=== PATIENT | male | born 1965 | race Caucasian/White ===

== ENCOUNTER 2017-07-26 19:52 | Inpatient (IN) | payer OTHER ==
[2017-07-26 20:38] LABS: ABSOLUTE LYMPHOCYTES (AUTO) 1.6 10^3/uL (0.5-4.7); ABSOLUTE MONOCYTES (AUTO) 0.3 10^3/uL (0.1-1.4); ABSOLUTE NEUT (AUTO) 1.4 10^3/uL (1.7-8.2); BASOPHILS % (AUTO) 1.4 % (0-2); EOSINOPHILS % (AUTO) 0.9 % (0-6); HEMATOCRIT 45.4 % (37.9-51.0); HEMOGLOBIN 15.8 g/dL (13.5-17.0); MEAN CORPUSCULAR HEMOGLOBIN 36.4 pg (27.0-33.4); MEAN CORPUSCULAR HGB CONC 34.7 g/dL (32.0-36.0); MEAN CORPUSCULAR VOLUME 105 fl (80-97); MONOCYTES % (AUTO) 7.8 % (3-13); RED BLOOD COUNT 4.33 10^6/uL (4.35-5.55); RED CELL DISTRIBUTION WIDTH 15.1 % (11.5-14.0); SEGMENTED NEUTROPHILS % (AUTO) 40.9 % (42-78); WHITE BLOOD COUNT 3.3 10^3/uL (4.0-10.5)
[2017-07-26] MEDS ORDERED: GABAPENTIN 300 MG CAPSULE PO ONE (21:02)
--- NOTE | 2017-07-26 21:02 | ER Document Report ---
ED General - General Chief Complaint: Suicidal Ideation Stated Complaint: PSYCH EVAL Time Seen by Provider: 07/26/17 20:31 Cannot obtain history due to: Intoxicated Notes: Patient is a 51-year-old male who presents by EMS with "not feeling right". Does admit to heavy drinking tonight. Apparently his significant other contacted EMS as patient threatened to hang himself stating that he did not know how to cope with the loss of his mother. The patient himself is quite guarded with his history, stating only that he feels fine. He does however repeatedly come back to stating "I have just never seen somebody like that before, I do not know how to handle the situation". He denies stating that he was going to harm himself but apparently both EMS and his significant other did hear him commenting that he planned harm himself. He does note that he has bilateral lower extremity pain that has been chronic and unchanged her last several months. He has no prior psychiatric hospitalizations. He denies any prior attempts to harm himself. Nothing improves or worsens his symptoms. TRAVEL OUTSIDE OF THE [place] IN LAST 30 DAYS: No - Related Data Allergies/Adverse Reactions: acetaminophen [From Darvocet-N] Allergy (Verified 07/26/17 19:59) propoxyphene [From Darvocet-N] Allergy (Verified 07/26/17 19:59) Past Medical History - General Information source: Patient - Social History Smoking Status: Current Every Day Smoker Frequency of alcohol use: Heavy Drug Abuse: None Lives with: Spouse/Significant other Family History: Reviewed & Not Pertinent Review of Systems - Review of Systems Notes: Constitutional: Negative for fever. HENT: Negative for sore throat. Eyes: Negative for visual changes. Cardiovascular: Negative for chest pain. Respiratory: Negative for shortness of breath. Gastrointestinal: Negative for abdominal pain, vomiting or diarrhea. Genitourinary: Negative for dysuria. Musculoskeletal: Negative for back pain. Skin: Negative for rash. Neurological: Negative for headaches, weakness or numbness. 10 point ROS negative except as marked above and in HPI. Physical Exam - Vital signs Vitals: Temp Pulse Resp BP Pulse Ox 98.4 F 89 20 145/108 H 95 07/26/17 20:06 07/26/17 20:06 07/26/17 20:06 07/26/17 20:06 07/26/17 20:06 Interpretation: Normal Notes: PHYSICAL EXAMINATION: GENERAL: Well-appearing, well-nourished and in no acute distress. HEAD: Atraumatic, normocephalic. EYES: Pupils equal round and reactive to light, extraocular movements intact, sclera anicteric, conjunctiva are normal. ENT: nares patent, oropharynx clear without exudates. Moist mucous membranes. NECK: Normal range of motion, supple without lymphadenopathy LUNGS: Breath sounds clear to auscultation bilaterally and equal. No wheezes rales or rhonchi. HEART: Regular rate and rhythm without murmurs ABDOMEN: Soft, nontender, normoactive bowel sounds. No guarding, no rebound. No masses appreciated. EXTREMITIES: Normal range of motion, no pitting or edema. No cyanosis. NEUROLOGICAL: No focal neurological deficits. Moves all extremities spontaneously and on command. PSYCH: Somewhat intoxicated but calm and cooperative SKIN: Warm, Dry, normal turgor, no rashes or lesions noted. Course - Re-evaluation Re-evalutation: 07/26/17 21:00 Patient presents without any specific complaints although apparently his fianc e with whom he lives called EMS as he apparently threatened to hang himself. Patient arrives intoxicated, is guarded in his history but does repeatedly state that "I just feel so helpless, I have never seen my mom like that before" . He denies any acute suicidal ideation at this time but is unable to explain to me why significant other was so worried about his comments earlier today that she called 911. Unfortunately we have no way to get a hold of the significant others he does not know her number and no contact information was provided by EMS. Patient has never been to the emergency department for for similar reason. Given that he is intoxicated, does not appear to be fully forthcoming with tonight's events, I would like to keep him here in the emergency room to evaluate by psychiatry in the morning and he has agreed. 07/27/17 01:42 Laboratories are only notable for market alcohol elevation at 371. LFTs are also elevated in a pattern consistent with chronic alcohol abuse. Patient is medically cleared for psychiatric clearance in the morning - Vital Signs Vital signs: Temp Pulse Resp BP Pulse Ox 98.4 F 89 20 145/108 H 95 07/26/17 20:06 07/26/17 20:06 07/26/17 20:06 07/26/17 20:06 07/26/17 20:06 - Laboratory Result Diagrams: 07/26/17 20:20 07/26/17 20:20 Laboratory results interpreted by me: 07/26/17 07/26/17 07/26/17 20:20 20:20 21:00 WBC 3.3 L RBC 4.33 L MCV 105 H MCH 36.4 H RDW 15.1 H Seg Neutrophils % 40.9 L Lymphocytes % 49.0 H Absolute Neutrophils 1.4 L Sodium 148.4 H Potassium 3.3 L Direct Bilirubin 0.6 H AST 235 H ALT 130 H Alkaline Phosphatase 134 H Urine Blood SMALL H Salicylates < 1.0 L Acetaminophen < 10 L Serum Alcohol 371 H* Discharge - Discharge Clinical Impression: Suicidal ideation Alcohol intoxication Qualifiers: Complication of substance-induced condition: uncomplicated Qualified Code(s): F10.920 - Alcohol use, unspecified with intoxication, uncomplicated Condition: Fair Disposition: PSYCH HOSP/UNIT
[2017-07-26 21:08] LABS: ALANINE AMINOTRANSFERASE 130 U/L (21-72); ALBUMIN 4.1 g/dL (3.5-5.0); ALKALINE PHOSPHATASE 134 U/L (38-126); ANION GAP 16 (5-19); ASPARTATE AMINO TRANSFERASE 235 U/L (17-59); BILIRUBIN,DIRECT 0.6 mg/dL (0.0-0.4); BILIRUBIN,TOTAL 0.7 mg/dL (0.2-1.3); BLOOD UREA NITROGEN 11 mg/dL (7-20); CALCIUM 8.9 mg/dL (8.4-10.2); CARBON DIOXIDE 27 mmol/L (22-30); CHLORIDE 105 mmol/L (98-107); CREATININE RESULT 0.69 mg/dL (0.52-1.25); GLUCOSE 78 mg/dL (75-110); POTASSIUM 3.3 mmol/L (3.6-5.0); SODIUM 148.4 mmol/L (137-145); TOTAL PROTEIN 6.7 g/dL (6.3-8.2)
[2017-07-26 21:33] LABS: ALCOHOL 371 mg/dL (NONE DETECTED)
[2017-07-26 21:35] LABS: APPEARANCE,URINE CLEAR; BILIRUBIN,URINE NEGATIVE (NEGATIVE); GLUCOSE, URINE NEGATIVE (NEGATIVE); KETONES,URINE NEGATIVE (NEGATIVE); LEUKOCYTE ESTERASE,URINE NEGATIVE (NEGATIVE); NITRITE,URINE NEGATIVE (NEGATIVE); PROTEIN,URINE NEGATIVE (NEGATIVE); URINE SPECIFIC GRAVITY 1.003; UROBILINOGEN,URINE NEGATIVE mg/dL (<2.0)
[2017-07-26 21:54] LABS: URINE BARBITURATES SCREEN NEGATIVE; URINE METHADONE SCREEN NEGATIVE; URINE OPIATES LOW NEGATIVE; URINE PHENCYCLIDINE SCREEN NEGATIVE
--- NOTE | 2017-07-26 23:18 | EKG REPORT ---
SEVERITY:- ABNORMAL ECG - SINUS RHYTHM OLD ANTEROSEPTAL AL : Confirmed by: Zurdo Benitez MD 26-Jul-2017 23:16:53
[2017-07-26] MEDS ORDERED: TRAZODONE HCL 50 MG TABLET PO ONE (23:25)
[2017-07-27] MEDS ORDERED: POTASSIUM CHLORIDE 10 MEQ TABLET.SA PO ONE ×2 (09:24→21:20)
[2017-07-27] MEDS ORDERED: LORAZEPAM 1 MG TABLET PO ONE ×3 (09:25→18:45)
[2017-07-27] MEDS ORDERED: LISINOPRIL 10 MG TABLET PO ONE (09:27)
[2017-07-27] MEDS ORDERED: RISPERIDONE 0.25 MG TABLET PO ONE (11:32)
--- NOTE | 2017-07-27 15:34 | PSYCHOLOGICAL NOTE ---
Psych Note - Psych Note Psych Note: Patient presented to [facility] ED via EMS. He states he has a plan to hang himself; no history of suicidal ideation. Patient relayed his mom is dying and he is having a hard time dealing with situation. Patient is currently intoxicated, his drink of choice is vodka. Chart review conducted: Patient has no history of prior psychological evaluations conducted by this behavioral health team. Patient is currently under the influence with a blood alcohol level of 371. Attending nurse noted the patient denies HI and SI but says he feels helpless because his mother is very sick; patient says she "just don't know what to do; the initial 911 call reported patent being SI; patient denies saying anything of the kind; patient says his "franky Sagastume said that"; patient agrees to allow us to contact Tanika but he doesn't know her number and no cell phone; says all numbers are programmed into the cell phones so he doesn't know her number by heart. Attending physician noted The patient himself is quite guarded with his history, stating only that he feels fine. He does however repeatedly come back to stating "I have just never seen somebody like that before, I do not know how to handle the situation". He denies stating that he was going to harm himself but apparently both EMS and his significant other did hear him commenting that he planned harm himself. Evaluation: Patient disclosed that he was brought to [facility] via EMS. He states that "they brought me in because she said I was going to kill myself." Patient denies that he made this comment. He continued to state that he is just been really upset because his mom has been very sick in the hospital for a couple weeks now. Patient states "I have never seen anything like it." Patient confirms he drinks every day "a pint or so." Patient denies that he wants to harm himself or others. Patient states that he just is very upset that his mom is so sick. 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 Patient is alert and orientated to person, place, time and circumstance. Mood is dysphoric with restricted affect. Patient denies suicidal and homicidal ideation. Patient denies auditory visual hallucinations. Patient is noted to have psychomotor agitation. Patient is unable to sit still shaking his legs jumping out of the bed checking the doors and hol[place]. When clinician pointed out to patient that he was shaking patient denies this and holds his hand up to look at it. As patient is watching his hand shake he again says that he was not shaking. Delusions are absent and behaviors congruent with intact reality based presentation i.e. organized, linear, rational thinking. Attention and concentration is fair. Eye contact was fair. Conversational speech was within normal rate tone and prosody. Insight, judgment, impulse control is fair due to substance abuse (alcohol abuse). 303.90 (F10.20) alcohol Abuse; severe 309.89 (F43.8) unspecified stressor related disorder; mother very sick in hospital Impression/Plan: Patient is considered psychiatrically clear. Patient does not meet IVC criteria per [place] GS 122C. Patient denies suicidal and homicidal ideation. Delusions are absent and behaviors congruent with intact reality based presentation i.e. organized, linear, rational thinking. Patient is demonstrating stress related to his mother's illness. Patient is very fixated on the shock of watching her being so sick. Patient came in with a blood alcohol level of 371 and during patient's evaluation began to shake. Patient reports he drinks approximately a pint daily. Patient is now being monitored for alcohol withdrawal. Dr. Cordero was consulted and the care and management of this patient; attending physician is in agreement with recommendations and disposition.
[2017-07-27] MEDS ORDERED: LORAZEPAM 1 MG TABLET PO PRN ×3 (17:28→21:20)
--- NOTE | 2017-07-27 17:30 | ER Document Report ---
Doctor's Note Notes: 07/27/17 17:29 Patient is being seen here for suicidal ideation as well as alcohol intoxication. He has been mildly hypertensive and tachycardic throughout his hospital stay today. I have treated it with his lisinopril as well as some Ativan. Patient has remained stable throughout the day. He also had hypokalemia which I treated with potassium. The patient is ordered Ativan 1 mg p.o. every 2 hours as needed withdrawal symptoms. 07/27/17 17:47 I did going to reassess the patient. He is alert and oriented sitting up on the edge of the seat. He is making good eye contact. I did ask me about suicidal or homicidal ideation. He denies both. He states "I guess I have a lot to live for". I did ask him when he was discharged home if he is going to continue drinking alcohol and he states "I need to get a job so now". Told him he have to get into a detox program as trying to stop alcohol on your own after a lengthy process can be detrimental to his health. Patient verbalized understanding. He is willing to call and get himself into a program if I give him the numbers. If I can normalizes heart rate and blood pressure I will discharge him home with Librium. Did tell him if he was to start drinking again that he was not to take the Librium with alcohol. Patient verbalized understanding. 07/27/17 18:46 Pt.'s heart rate had decreased to low 90s. Blood pressure is improved, although still slightly elevated. Pt. states his blood pressure is usually high and he is on lisinopril to treat this. Pt. will get one more dose of po ativan and be discharged on librium. 07/27/17 19:00 07/27/17 19:13 I did tell the patient he needs to get his Librium prescription filled today. [email or web address]
[2017-07-27] MEDS ORDERED: FOLIC ACID 1 MG TABLET PO ONE (21:21)
--- NOTE | 2017-07-27 21:24 | ER Document Report ---
Doctor's Note Notes: 07/27/17 21:23 I assumed care of patient this evening. The patient has a history of alcohol abuse and presented with suicidal ideations in the setting of alcohol intoxication. He was observed and evaluated by psychiatry today. The plan involves discharge home with outpatient detox. Given the current time, the plan will be discharge tomorrow morning. We will continue to observe for alcohol withdrawal. He has required Ativan. 07/28/17 02:55
[2017-07-28] MEDS ORDERED: LORAZEPAM 1 MG TABLET PO ONE (01:40)
--- NOTE | 2017-07-28 02:47 | EKG REPORT ---
SEVERITY:- NORMAL ECG - SINUS RHYTHM : Confirmed by: Zurdo Benitez MD 27-Jul-2017 19:51:12
[2017-07-28] MEDS ORDERED: LORAZEPAM INJ 2 MG/1 ML VIAL IV ONE (03:58)
[2017-07-28] MEDS ORDERED: ONDANSETRON HCL INJ/PF 4 MG/2 ML SDV IV PRN (04:19)
[2017-07-28] MEDS ORDERED: ACETAMINOPHEN 325 MG TABLET PO PRN (04:19)
[2017-07-28] MEDS ORDERED: LEVALBUTEROL HCL NEB 1.25 MG/3 ML AMPUL NEB PRN (04:19)
[2017-07-28] MEDS ORDERED: LORAZEPAM INJ 2 MG/1 ML VIAL IV PRN (04:23)
[2017-07-28] MEDS: NORMAL SALINE 1000 ML 1,000 ML IV PRN ×3 (04:33→15:44)
[2017-07-28] MEDS ORDERED: NICOTINE 21 MG/24 HR PATCH.TD24 TD PRN (05:01)
--- NOTE | 2017-07-28 05:01 | PDOC H&P ---
History of Present Illness Admission Date/PCP: 07/28/17 04:12 No PCP History of Present Illness: MARCOS MIRAMONTES is a 51 year old male with a PMH of HTN who presents to [facility] on 07/26/17 for SI. Patient was initially found to be intoxicated and was IVC. Patient was subsequently evaluated by psychology and felt to not be a danger to himself or others. Patient reports drinking a pint or more daily. Although pending discharge, patient became increasingly agitated and tachycardic as well as hypertensive. Patient is felt to be having acute alcohol withdrawal and is referred to the hospital service. Patient has recently received Ativan and is quite sleepy although arousable and appropriate when aroused; and asks me for something to eat. This does make history quite difficult. Past Medical History Cardiac Medical History: Reports: Hypertension Pulmonary Medical History: Reports: Chronic Obstructive Pulmonary Disease (COPD) Past Surgical History Past Surgical History: Reports: Orthopedic Surgery - Carpal tunnel Social History Lives with: Spouse/Significant other Smoking Status: Current Every Day Smoker Cigarettes Packs Per Day: 1 Frequency of Alcohol Use: Heavy Hx Recreational Drug Use: No Hx Prescription Drug Abuse: No - Advance Directive Resuscitation Status: Full Code Surrogate healthcare decision maker:: Is unable to provide a emergency contact Family History Family History: COPD Parental Family History Reviewed: Yes Children Family History Reviewed: Unknown Sibling(s) Family History Reviewed.: Unknown Medication/Allergy Home Medications: Chlordiazepoxide HCl [Librium 25 mg Capsule] 1 - 2 cap PO QID #120 capsule MDD 300 mg 07/27/17 Lisinopril [Prinivil 30 mg Tablet] 30 mg PO DAILY 07/27/17 Allergies/Adverse Reactions: acetaminophen [From Darvocet-N] Allergy (Verified 07/26/17 19:59) propoxyphene [From Darvocet-N] Allergy (Verified 07/26/17 19:59) Review of Systems ROS unobtainable: Due to mental status Physical Exam Vital Signs: Temp Pulse Resp BP Pulse Ox 97.9 F 88 14 144/115 H 88 L 07/27/17 20:29 07/27/17 18:30 07/28/17 02:17 07/28/17 02:25 07/28/17 02:24 General appearance: PRESENT: disheveled, thin. ABSENT: well-nourished Head exam: PRESENT: atraumatic, normocephalic Eye exam: PRESENT: conjunctiva pink, EOMI, PERRLA. ABSENT: conjunctival injection, scleral icterus Ear exam: PRESENT: normal external ear exam Mouth exam: PRESENT: dry mucosa, tongue midline Neck exam: ABSENT: JVD, lymphadenopathy, thyromegaly, tracheal deviation Respiratory exam: PRESENT: symmetrical, unlabored, wheezes. ABSENT: accessory muscle use, rales, retraction, rhonchi, tachypnea Cardiovascular exam: PRESENT: RRR, +S1, +S2. ABSENT: diastolic murmur, rubs, systolic murmur Pulses: PRESENT: normal dorsalis pedis pul Vascular exam: PRESENT: normal capillary refill GI/Abdominal exam: PRESENT: normal bowel sounds, soft. ABSENT: distended, guarding, mass, organolmegaly, rebound, tenderness Rectal exam: PRESENT: deferred Extremities exam: PRESENT: clubbing. ABSENT: calf tenderness, pedal edema Musculoskeletal exam: PRESENT: deformity - Right elbow bruise, reports radial head injury Neurological exam: PRESENT: altered, oriented to person, CN II-XII grossly intact Psychiatric exam: PRESENT: depressed, flat affect. ABSENT: homicidal ideation, suicidal ideation Skin exam: PRESENT: dry, intact, warm, other - Nail pitting. ABSENT: cyanosis, rash Results Laboratory Results: 07/26/17 07/26/17 20:20 20:20 WBC 3.3 L Hgb 15.8 MCV 105 H Plt Count 313 Sodium 148.4 H Potassium 3.3 L Creatinine 0.69 AST 235 H ALT 130 H Alkaline Phosphatase 134 H Serum Alcohol 371 H* Assessment & Plan - Diagnosis (1) Alcohol withdrawal delirium, acute, mixed level of activity Is this a current diagnosis for this admission?: Yes Plan: Monitor patient on telemetry for arrhythmia. Check magnesium. Scheduled po Valium. PRN IV Ativan for withdrawal symptoms. Place on thiamine, folic acid. Monitor for worsening symptomatology (2) Hypertension Qualifiers: Hypertension type: essential hypertension Qualified Code(s): I10 - Essential (primary) hypertension Is this a current diagnosis for this admission?: Yes Plan: Lisinopril 20 mg p.o. every 12 (3) COPD (chronic obstructive pulmonary disease) Qualifiers: COPD type: unspecified COPD Qualified Code(s): J44.9 - Chronic obstructive pulmonary disease, unspecified Is this a current diagnosis for this admission?: Yes Plan: Initiate patient on scheduled nebulized treatments. Consider steroids if patient worsens. (4) Alcoholic hepatitis Qualifiers: Ascites presence: without ascites Qualified Code(s): K70.10 - Alcoholic hepatitis without ascites Is this a current diagnosis for this admission?: Yes (5) Alcohol intoxication Qualifiers: Complication of substance-induced condition: uncomplicated Qualified Code(s ): F10.920 - Alcohol use, unspecified with intoxication, uncomplicated Is this a current diagnosis for this admission?: No Plan: This has resolved (6) Tobacco abuse Is this a current diagnosis for this admission?: Yes Plan: Patient is advised to stop using tobacco. Nicotine patch prn - Time Time Spent: 30 to 50 Minutes Medications reviewed and adjusted accordingly: Yes Anticipated discharge: Home Within: Other - Upon improvement of symptomatology - Inpatient Certification Based on my medical assessment, after consideration of the patient's comorbidities, presenting symptoms, or acuity I expect that the services needed warrant INPATIENT care.: Yes I certify that my determination is in accordance with my understanding of Medicare's requirements for reasonable and necessary INPATIENT services [42 CFR 412.3e].: Yes Medical Necessity: Need For IV Fluids, Need For Continuous Telemetry Monitoring 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
[2017-07-28 05:15] LABS: ABSOLUTE LYMPHOCYTES (AUTO) 1.6 10^3/uL (0.5-4.7); ABSOLUTE MONOCYTES (AUTO) 0.5 10^3/uL (0.1-1.4); ABSOLUTE NEUT (AUTO) 2.3 10^3/uL (1.7-8.2); EOSINOPHILS % (AUTO) 0.7 % (0-6); HEMATOCRIT 41.4 % (37.9-51.0); HEMOGLOBIN 14.4 g/dL (13.5-17.0); HGB HCT DIFFERENCE 1.8; LYMPHOCYTES % (AUTO) 35.7 % (13-45); MEAN CORPUSCULAR HEMOGLOBIN 36.3 pg (27.0-33.4); MEAN CORPUSCULAR HGB CONC 34.8 g/dL (32.0-36.0); MEAN CORPUSCULAR VOLUME 104 fl (80-97); MONOCYTES % (AUTO) 10.5 % (3-13); RED BLOOD COUNT 3.97 10^6/uL (4.35-5.55); RED CELL DISTRIBUTION WIDTH 14.6 % (11.5-14.0); SEGMENTED NEUTROPHILS % (AUTO) 52.1 % (42-78); WHITE BLOOD COUNT 4.4 10^3/uL (4.0-10.5)
[2017-07-28 05:19] LABS: PROTHROMBIN TIME 12.4 SEC (11.4-15.4)
[2017-07-28 05:34] LABS: ALANINE AMINOTRANSFERASE 97 U/L (21-72); ALBUMIN 3.4 g/dL (3.5-5.0); ALKALINE PHOSPHATASE 113 U/L (38-126); ANION GAP 10 (5-19); ASPARTATE AMINO TRANSFERASE 134 U/L (17-59); BILIRUBIN,DIRECT 0.5 mg/dL (0.0-0.4); BILIRUBIN,TOTAL 1.1 mg/dL (0.2-1.3); BLOOD UREA NITROGEN 15 mg/dL (7-20); CALCIUM 9.1 mg/dL (8.4-10.2); CARBON DIOXIDE 27 mmol/L (22-30); CHLORIDE 107 mmol/L (98-107); CREATININE RESULT 0.66 mg/dL (0.52-1.25); GLUCOSE 90 mg/dL (75-110); MAGNESIUM 1.5 mg/dL (1.6-2.3); POTASSIUM 3.6 mmol/L (3.6-5.0); SODIUM 143.9 mmol/L (137-145); TOTAL PROTEIN 5.8 g/dL (6.3-8.2)
[2017-07-28] MEDS: DIAZEPAM 5 MG TABLET PO SCH ×4 (05:46→23:55)
[2017-07-28] MEDS: LANSOPRAZOLE 15 MG TAB.RAP.DR PO SCH ×2 (05:46→17:26)
[2017-07-28 07:10] LABS: APPEARANCE,URINE CLEAR; BILIRUBIN,URINE NEGATIVE (NEGATIVE); GLUCOSE, URINE NEGATIVE (NEGATIVE); KETONES,URINE NEGATIVE (NEGATIVE); LEUKOCYTE ESTERASE,URINE NEGATIVE (NEGATIVE); NITRITE,URINE NEGATIVE (NEGATIVE); PROTEIN,URINE NEGATIVE (NEGATIVE); URINE SPECIFIC GRAVITY 1.008; UROBILINOGEN,URINE NEGATIVE mg/dL (<2.0)
[2017-07-28 07:28] LABS: BACTERIA,URINE TRACE /HPF
[2017-07-28] MEDS: IPRATROPIUM/ALBUTEROL 0.5-2.5 MG/3 ML AMPUL NEB SCH ×3 (07:44→20:30)
[2017-07-28] MEDS ORDERED: METOPROLOL SUCCINATE 50 MG TAB.SR.24H PO ONE (10:00)
--- NOTE | 2017-07-28 10:33 | PSYCHOLOGICAL NOTE ---
Psych Note - Psych Note Psych Note: Patient's ck came to [facility] ED. Previous attempts at contacting ck were unsuccessful. Clinician spoke with ck she disclosed concern the patient has been having difficulty with his mother being in hospice. She continues states that the patient started to go downhill since March, when he lost his job. She continues to state that he started to drink more and more. He has been hiding the amounts that he is drinking by putting straight vodka into boost bottles. (Patient was not eating much so she had previously purchased boost in attempt to get some nutrients in him). She continued to disclose concern on the severity of his alcoholism. She stated that she debated about 45 minutes before calling 911 because of her concerns with the patient's situation. She disclosed that she did find the patient sitting on the front porch with a rope, when she asked what he was doing he jumped and let go of the rope very quickly and stated "nothing." She discloses concern that the patient will end up either drinking himself to or hanging himself. She reports that she did vegetable picker the rope later and notice that there was a noose tied on the end of it. 303.90 (F10.20) alcohol Abuse; severe 309.89 (F43.8) unspecified stressor related disorder; mother has been placed in Hospice Impression/Plan: Patient has been admitted to Hospitalist services. Patient was previously cleared from psychiatric services; however, due to the new information obtained the patient will be placed on mental health hold until patient is medically cleared and able to effectively engage in evaluation without being under the influence or going through acute withdrawal. If the patient attempts to leave, he can be put under IVC status. At this time is believed not necessary because of patient's medical condition. Patient will additionally need further information on options for continued sobriety and grief support services.
[2017-07-28] MEDS: MULTIVITAMIN TABLET PO SCH (11:34)
[2017-07-28] MEDS: AMLODIPINE BESYLATE 5 MG TABLET PO SCH (11:34)
[2017-07-28] MEDS: LISINOPRIL 10 MG TABLET PO SCH ×2 (11:35→21:19)
[2017-07-28] MEDS: ENOXAPARIN SODIUM INJ 40 MG/0.4 ML DISP.SYRIN SUBCUT SCH (11:36)
[2017-07-28] MEDS ORDERED: INFLUENZA ADLT QUAD (36MOS+) 2017-18 VAC 0.5 ML SYR IM PRN (17:06)
[2017-07-28] MEDS: NORMAL SALINE 1000 ML 1,000 ML with POTASSIUM CHLORIDE 20 MEQ, MAGNESIUM SULFATE 8 MEQ,... IV SCH ×5 (17:27)
[2017-07-28] MEDS: OLANZAPINE 5 MG TABLET PO SCH (21:19)
[2017-07-28] MEDS: LORAZEPAM INJ 2 MG/1 ML VIAL IV PRN (21:41)
[2017-07-29] MEDS: IPRATROPIUM/ALBUTEROL 0.5-2.5 MG/3 ML AMPUL NEB SCH ×2 (01:52→07:54)
--- NOTE | 2017-07-29 03:54 | Progress Note ---
Provider Note Provider Note: Significant other to bedside and updated about his medical condition. Patient had experienced significant loses during th past year contributing to alcohol abuse and suicidal gesture. Will conitnue with present treatment and add zyprexa to current regimen
[2017-07-29 05:15] LABS: ABSOLUTE EOSINOPHILS # (AUTO) 0.1 10^3/uL (0.0-0.6); ABSOLUTE LYMPHOCYTES (AUTO) 2.3 10^3/uL (0.5-4.7); ABSOLUTE MONOCYTES (AUTO) 0.3 10^3/uL (0.1-1.4); EOSINOPHILS % (AUTO) 1.7 % (0-6); HEMATOCRIT 42.5 % (37.9-51.0); HEMOGLOBIN 14.9 g/dL (13.5-17.0); HGB HCT DIFFERENCE 2.2; MEAN CORPUSCULAR VOLUME 106 fl (80-97); MONOCYTES % (AUTO) 7.2 % (3-13); RED BLOOD COUNT 4.02 10^6/uL (4.35-5.55); RED CELL DISTRIBUTION WIDTH 14.7 % (11.5-14.0); SEGMENTED NEUTROPHILS % (AUTO) 42.1 % (42-78); WHITE BLOOD COUNT 4.8 10^3/uL (4.0-10.5)
[2017-07-29] MEDS: LANSOPRAZOLE 15 MG TAB.RAP.DR PO SCH ×2 (05:24→16:39)
[2017-07-29] MEDS: DIAZEPAM 5 MG TABLET PO SCH ×4 (05:24→23:35)
[2017-07-29 05:44] LABS: ANION GAP 11 (5-19); BLOOD UREA NITROGEN 7 mg/dL (7-20); CALCIUM 9.6 mg/dL (8.4-10.2); CARBON DIOXIDE 24 mmol/L (22-30); CHLORIDE 109 mmol/L (98-107); CREATININE RESULT 0.58 mg/dL (0.52-1.25); GLUCOSE 114 mg/dL (75-110); MAGNESIUM 1.7 mg/dL (1.6-2.3); SODIUM 144.4 mmol/L (137-145)
[2017-07-29 05:49] LABS: POTASSIUM 2.8 mmol/L (3.6-5.0)
[2017-07-29] MEDS ORDERED: MAGNESIUM SULFATE/D5W 1 GM/100 ML RTUPB IV ONE (07:45)
[2017-07-29] MEDS ORDERED: POTASSIUM CHLORIDE 10 MEQ TABLET.SA PO ONE (08:00)
[2017-07-29] MEDS ORDERED: FLUOXETINE HCL 20 MG CAPSULE PO SCH (09:30)
--- NOTE | 2017-07-29 09:34 | PDOC PROGRESS REPORT ---
Subjective Progress Note for:: 07/29/17 Subjective:: No complaints ROS All organ systems evaluated and negative All significant laboratories and diagnostics have been reviewed Reason For Visit: ETOH WITHDRAWAL Physical Exam Vital Signs: Temp Pulse Resp BP Pulse Ox 98.2 F 94 16 120/89 H 99 07/29/17 04:37 07/29/17 04:37 07/29/17 04:37 07/29/17 04:37 07/29/17 04:37 Intake & Output 07/28/17 07/29/17 07/30/17 06:59 06:59 06:59 Intake Total 1523 Balance 1523 Weight 50.6 kg General appearance: PRESENT: no acute distress, cooperative, thin Head exam: PRESENT: atraumatic, normocephalic Eye exam: PRESENT: EOMI, PERRLA Ear exam: PRESENT: normal external ear exam Mouth exam: PRESENT: moist, neck supple Neck exam: PRESENT: full ROM, tenderness. ABSENT: JVD Respiratory exam: PRESENT: clear to auscultation jah Cardiovascular exam: PRESENT: RRR. ABSENT: diastolic murmur, systolic murmur Vascular exam: PRESENT: normal capillary refill GI/Abdominal exam: PRESENT: normal bowel sounds, soft. ABSENT: tenderness Extremities exam: ABSENT: pedal edema Musculoskeletal exam: PRESENT: full ROM Neurological exam: PRESENT: alert, oriented to person, oriented to place, oriented to time Psychiatric exam: PRESENT: anxious Results Laboratory Results: 07/29/17 04:24 07/29/17 04:24 07/28/17 07/29/17 07/29/17 06:20 04:24 04:24 WBC 4.8 RBC 4.02 L Hgb 14.9 Hct 42.5 MCV 106 H MCH 37.0 H MCHC 35.0 RDW 14.7 H Plt Count 201 Seg Neutrophils % 42.1 Lymphocytes % 48.0 H Monocytes % 7.2 Eosinophils % 1.7 Basophils % 1.0 Absolute Neutrophils 2.0 Absolute Lymphocytes 2.3 Absolute Monocytes 0.3 Absolute Eosinophils 0.1 Absolute Basophils 0.0 Sodium 144.4 Potassium 2.8 L* Chloride 109 H Carbon Dioxide 24 Anion Gap 11 BUN 7 Creatinine 0.58 Est GFR ( Amer) > 60 Est GFR (Non-Af Amer) > 60 Glucose 114 H Calcium 9.6 Magnesium 1.7 Urine Color STRAW Urine Appearance CLEAR Urine pH 8.0 Ur Specific [place] 1.008 Urine Protein NEGATIVE Urine Glucose (UA) NEGATIVE Urine Ketones NEGATIVE Urine Blood NEGATIVE Urine Nitrite NEGATIVE Ur Leukocyte Esterase NEGATIVE Assessment & Plan - Diagnosis (1) Alcohol withdrawal delirium, acute, mixed level of activity Is this a current diagnosis for this admission?: Yes Plan: Continue present management. Improving (2) COPD (chronic obstructive pulmonary disease) Qualifiers: COPD type: unspecified COPD Qualified Code(s): J44.9 - Chronic obstructive pulmonary disease, unspecified Is this a current diagnosis for this admission?: Yes Plan: Continue present management (3) Hypertension Qualifiers: Hypertension type: essential hypertension Qualified Code(s): I10 - Essential (primary) hypertension Is this a current diagnosis for this admission?: Yes Plan: Continue present management. Improved (4) Suicidal ideation Plan: Being followed up by psychiatry. (5) Tobacco abuse Is this a current diagnosis for this admission?: Yes Plan: When more alert will discuss about quitting (6) Hypokalemia Is this a current diagnosis for this admission?: Yes Plan: Currently being replaced. Trend (7) Hypomagnesemia Is this a current diagnosis for this admission?: Yes - Time Time Spent with patient: 15-24 minutes Medications reviewed and adjusted accordingly: Yes Anticipated discharge: Other - Possibly a psychiatric facility Within: within 72 hours - Inpatient Certification Based on my medical assessment, after consideration of the patient's comorbidities, presenting symptoms, or acuity I expect that the services needed warrant INPATIENT care.: Yes I certify that my determination is in accordance with my understanding of Medicare's requirements for reasonable and necessary INPATIENT services [42 CFR 412.3e].: Yes Medical Necessity: Need For IV Fluids
[2017-07-29] MEDS: LISINOPRIL 10 MG TABLET PO SCH ×2 (10:27→21:08)
[2017-07-29] MEDS: POTASSIUM CHLORIDE 20 MEQ/50 ML RTU IV SCH ×2 (10:28→12:46)
[2017-07-29] MEDS: ENOXAPARIN SODIUM INJ 40 MG/0.4 ML DISP.SYRIN SUBCUT SCH (10:29)
[2017-07-29] MEDS: AMLODIPINE BESYLATE 5 MG TABLET PO SCH (10:29)
[2017-07-29] MEDS: MULTIVITAMIN TABLET PO SCH (10:29)
[2017-07-29] MEDS: LORAZEPAM INJ 2 MG/1 ML VIAL IV PRN ×2 (16:39→21:07)
[2017-07-29] MEDS: NORMAL SALINE 1000 ML 1,000 ML with POTASSIUM CHLORIDE 20 MEQ, MAGNESIUM SULFATE 8 MEQ,... IV SCH ×5 (17:10)
[2017-07-29] MEDS: FLUTICASONE/SALMETEROL DISKUS 250-50 MCG/DOSE IH SCH (17:10)
[2017-07-29] MEDS: OLANZAPINE 5 MG TABLET PO SCH (21:08)
[2017-07-30] MEDS: LANSOPRAZOLE 15 MG TAB.RAP.DR PO SCH ×2 (06:22→18:26)
[2017-07-30] MEDS: FLUTICASONE/SALMETEROL DISKUS 250-50 MCG/DOSE IH SCH ×2 (06:23→18:26)
[2017-07-30] MEDS: DIAZEPAM 5 MG TABLET PO SCH (06:23)
[2017-07-30 07:51] LABS: ANION GAP 10 (5-19); BLOOD UREA NITROGEN 7 mg/dL (7-20); CALCIUM 9.1 mg/dL (8.4-10.2); CARBON DIOXIDE 20 mmol/L (22-30); CHLORIDE 115 mmol/L (98-107); CREATININE RESULT 0.63 mg/dL (0.52-1.25); GLUCOSE 87 mg/dL (75-110); MAGNESIUM 1.6 mg/dL (1.6-2.3); POTASSIUM 3.7 mmol/L (3.6-5.0); SODIUM 145.2 mmol/L (137-145)
[2017-07-30] MEDS ORDERED: DIAZEPAM 5 MG TABLET PO PRN (09:31)
--- NOTE | 2017-07-30 09:42 | PDOC PROGRESS REPORT ---
Subjective Progress Note for:: 07/30/17 Subjective:: No complaints. Denies suicidal thoughts. ROS All organ systems evaluated and negative All significant laboratories and diagnostics have been reviewed Reason For Visit: ETOH WITHDRAWAL Physical Exam Vital Signs: Temp Pulse Resp BP Pulse Ox 97.4 F 76 14 152/88 H 98 07/29/17 23:41 07/30/17 02:00 07/29/17 23:41 07/29/17 23:41 07/29/17 23:41 Intake & Output 07/28/17 07/29/17 07/30/17 06:59 06:59 06:59 Intake Total 1523 2395 Balance 1523 2395 Weight 50.6 kg General appearance: PRESENT: no acute distress, cooperative, thin Head exam: PRESENT: atraumatic, normocephalic Eye exam: PRESENT: EOMI, PERRLA Ear exam: PRESENT: normal external ear exam Mouth exam: PRESENT: moist, neck supple Neck exam: PRESENT: full ROM. ABSENT: JVD, tenderness Respiratory exam: PRESENT: clear to auscultation jah. ABSENT: crackles, rhonchi Cardiovascular exam: PRESENT: RRR. ABSENT: diastolic murmur, systolic murmur Vascular exam: PRESENT: normal capillary refill GI/Abdominal exam: PRESENT: normal bowel sounds, soft. ABSENT: distended, guarding, tenderness Neurological exam: PRESENT: alert, oriented to person, oriented to place, oriented to time Psychiatric exam: PRESENT: appropriate affect, normal mood Results Laboratory Results: 07/29/17 04:24 07/29/17 04:24 07/29/17 04:24 Sodium 144.4 Potassium 2.8 L* Chloride 109 H Carbon Dioxide 24 Anion Gap 11 BUN 7 Creatinine 0.58 Est GFR ( Amer) > 60 Est GFR (Non-Af Amer) > 60 Glucose 114 H Calcium 9.6 Magnesium 1.7 Assessment & Plan - Diagnosis (1) Alcohol withdrawal delirium, acute, mixed level of activity Is this a current diagnosis for this admission?: Yes Plan: Decrease scheduled valium and follow response (2) COPD (chronic obstructive pulmonary disease) Qualifiers: COPD type: unspecified COPD Qualified Code(s): J44.9 - Chronic obstructive pulmonary disease, unspecified Is this a current diagnosis for this admission?: Yes Plan: Continue present management (3) Hypertension Qualifiers: Hypertension type: essential hypertension Qualified Code(s): I10 - Essential (primary) hypertension Is this a current diagnosis for this admission?: Yes Plan: Increase norvasc dose and add toprol xl (4) Suicidal ideation Is this a current diagnosis for this admission?: Yes Plan: Being followed up by psychiatry. Resolved. Add prozac (5) Tobacco abuse Is this a current diagnosis for this admission?: Yes Plan: Advised to quit (6) Hypokalemia Is this a current diagnosis for this admission?: Yes Plan: Replaced (7) Hypomagnesemia Is this a current diagnosis for this admission?: Yes Plan: Replaced - Time Time Spent with patient: 15-24 minutes Smoking Cessation Education: 3 to 10 minutes Medications reviewed and adjusted accordingly: Yes Anticipated discharge: Home - Inpatient Certification Based on my medical assessment, after consideration of the patient's comorbidities, presenting symptoms, or acuity I expect that the services needed warrant INPATIENT care.: Yes I certify that my determination is in accordance with my understanding of Medicare's requirements for reasonable and necessary INPATIENT services [42 CFR 412.3e].: Yes Medical Necessity: Need Close Monitoring Due to Risk of Patient Decompensation
[2017-07-30] MEDS: AMLODIPINE BESYLATE 10 MG TABLET PO SCH (09:59)
[2017-07-30] MEDS: ENOXAPARIN SODIUM INJ 40 MG/0.4 ML DISP.SYRIN SUBCUT SCH (09:59)
[2017-07-30] MEDS: FLUOXETINE HCL 20 MG CAPSULE PO SCH (09:59)
[2017-07-30] MEDS: METOPROLOL SUCCINATE 50 MG TAB.SR.24H PO SCH ×2 (09:59→21:37)
[2017-07-30] MEDS: LISINOPRIL 10 MG TABLET PO SCH ×2 (09:59→21:37)
[2017-07-30] MEDS: MULTIVITAMIN TABLET PO SCH (10:00)
[2017-07-30] MEDS ORDERED: ACETAMINOPHEN 325 MG TABLET PO PRN (10:00)
[2017-07-30] MEDS ORDERED: ONDANSETRON HCL INJ/PF 4 MG/2 ML SDV IV PRN (10:00)
[2017-07-30] MEDS ORDERED: NICOTINE 21 MG/24 HR PATCH.TD24 TD PRN (10:00)
[2017-07-30] MEDS ORDERED: LORAZEPAM INJ 2 MG/1 ML VIAL IV PRN (10:00)
[2017-07-30] MEDS: NORMAL SALINE 1000 ML 1,000 ML IV PRN (12:19)
[2017-07-30] MEDS: NORMAL SALINE 1000 ML 1,000 ML with POTASSIUM CHLORIDE 20 MEQ, MAGNESIUM SULFATE 8 MEQ,... IV SCH ×5 (18:26)
[2017-07-30] MEDS: OLANZAPINE 5 MG TABLET PO SCH (21:37)
[2017-07-31] MEDS: FLUTICASONE/SALMETEROL DISKUS 250-50 MCG/DOSE IH SCH ×2 (06:17→17:20)
[2017-07-31] MEDS: LANSOPRAZOLE 15 MG TAB.RAP.DR PO SCH ×2 (06:17→17:20)
[2017-07-31] MEDS ORDERED: ALPRAZOLAM 0.5 MG TABLET PO PRN (08:34)
--- NOTE | 2017-07-31 08:41 | PDOC PROGRESS REPORT ---
Subjective Progress Note for:: 07/31/17 Subjective:: No complaints. Denies suicidal thoughts. ROS All organ systems evaluated and negative All significant laboratories and diagnostics have been reviewed Reason For Visit: ETOH WITHDRAWAL Physical Exam Vital Signs: Temp Pulse Resp BP Pulse Ox 97.4 F 73 18 147/94 H 99 07/30/17 20:11 07/30/17 20:11 07/30/17 20:11 07/30/17 20:11 07/30/17 20:11 Intake & Output 07/29/17 07/30/17 07/31/17 06:59 06:59 06:59 Intake Total 1523 5362 2302 Balance 1523 5362 2302 Weight 50.6 kg 54.6 kg General appearance: PRESENT: no acute distress, cooperative, thin Head exam: PRESENT: atraumatic, normocephalic Eye exam: PRESENT: EOMI, PERRLA Ear exam: PRESENT: normal external ear exam, TM's normal bilaterally Mouth exam: PRESENT: moist Neck exam: PRESENT: full ROM. ABSENT: JVD, tenderness Respiratory exam: PRESENT: clear to auscultation jah Cardiovascular exam: PRESENT: RRR. ABSENT: diastolic murmur, systolic murmur Vascular exam: PRESENT: normal capillary refill GI/Abdominal exam: PRESENT: normal bowel sounds, soft. ABSENT: tenderness Neurological exam: PRESENT: alert, oriented to person, oriented to place, oriented to time Psychiatric exam: PRESENT: appropriate affect, normal mood Results Laboratory Results: 07/29/17 04:24 07/30/17 07:05 07/30/17 07:05 Sodium 145.2 H Potassium 3.7 Chloride 115 H Carbon Dioxide 20 L Anion Gap 10 BUN 7 Creatinine 0.63 Est GFR ( Amer) > 60 Est GFR (Non-Af Amer) > 60 Glucose 87 Calcium 9.1 Magnesium 1.6 07/28/17 06:20 Clean Catch Midstream Urine Culture - Final 3,000 col/ml Assessment & Plan - Diagnosis (1) Alcohol withdrawal delirium, acute, mixed level of activity Is this a current diagnosis for this admission?: Yes Plan: Discontinue valium and order xanax prn (2) COPD (chronic obstructive pulmonary disease) Qualifiers: COPD type: unspecified COPD Qualified Code(s): J44.9 - Chronic obstructive pulmonary disease, unspecified Is this a current diagnosis for this admission?: Yes Plan: Continue present management (3) Hypertension Qualifiers: Hypertension type: essential hypertension Qualified Code(s): I10 - Essential (primary) hypertension Is this a current diagnosis for this admission?: Yes Plan: Add hydralazine to current regimen (4) Suicidal ideation Is this a current diagnosis for this admission?: Yes Plan: Being followed up by psychiatry. Resolved. Continue prozac and zyprexa (5) Tobacco abuse Is this a current diagnosis for this admission?: Yes Plan: Advised to quit (6) Hypokalemia Is this a current diagnosis for this admission?: Yes Plan: Replaced (7) Hypomagnesemia Is this a current diagnosis for this admission?: Yes Plan: Replaced. Add mag oxide to this regimen - Time Time Spent with patient: 15-24 minutes Anticipated discharge: Home Within: within 24 hours - Inpatient Certification Based on my medical assessment, after consideration of the patient's comorbidities, presenting symptoms, or acuity I expect that the services needed warrant INPATIENT care.: Yes I certify that my determination is in accordance with my understanding of Medicare's requirements for reasonable and necessary INPATIENT services [42 CFR 412.3e].: Yes Medical Necessity: Need Close Monitoring Due to Risk of Patient Decompensation
[2017-07-31] MEDS: ENOXAPARIN SODIUM INJ 40 MG/0.4 ML DISP.SYRIN SUBCUT SCH (09:46)
[2017-07-31] MEDS: MAGNESIUM OXIDE 400 MG TABLET PO SCH (09:49)
[2017-07-31] MEDS: ASPIRIN 81 MG TABLET, ENT COATED PO SCH (09:49)
[2017-07-31] MEDS: AMLODIPINE BESYLATE 10 MG TABLET PO SCH (09:49)
[2017-07-31] MEDS: FLUOXETINE HCL 20 MG CAPSULE PO SCH (09:49)
[2017-07-31] MEDS: LISINOPRIL 10 MG TABLET PO SCH ×2 (09:50→21:49)
[2017-07-31] MEDS: MULTIVITAMIN TABLET PO SCH (09:50)
[2017-07-31] MEDS: METOPROLOL SUCCINATE 50 MG TAB.SR.24H PO SCH ×2 (09:50→21:49)
[2017-07-31] MEDS: THIAMINE HCL 100 MG TABLET PO SCH (09:50)
[2017-07-31] MEDS: HYDRALAZINE HCL 50 MG TABLET PO SCH ×2 (09:50→21:49)
--- NOTE | 2017-07-31 16:49 | PSYCHOLOGICAL NOTE ---
Psych Note - Psych Note Psych Note: Patient is a 51 year old male who arrived to [facility] through the ED on 07/26/2017 with a Serum Alcohol Level of 371 and for SI. He was subsequently admitted for alcohol withdrawal. Today patient reported he "feels good." He was eating lunch. Observed minimal shakes with respect to his hands. He denied current SI as well as previous attempts. He admitted to drinking the night he arrived to the ED and stated he does want treatment and help to keep sober. He stated there was a rope on his porch and commented "it had been tied in the tree for awhile, a little girl kept trying to cut it down, he told her not to, but she did. He stated he wanted to "get [place] decorations up and get back to the norm." He denied previous SA treatment. He stated when he was younger his parents got and he had behavioral health treatment for that. Patient was alert and oriented to person, place and situation. Mood was euthymic with congruent affect. He denied current SI/HI, as well as previous attempts. he did not appear to be responding to internal stimuli AEB fair eye contact, staying on topic and carrying on dialogue conversation. Thought processes were organized and linear. Conversational speech was WNL for rate, tone and prosody. Intellectual abilities are estimated to be average. Insight, judgment and impulse control are fair AEB admitting he has a problem. Patient gave verbal consent to contact his fianceTanika ([phone]). She stated she is concerned for patient's alcohol use and depression. She confirmed she has outpatient resources provided to her by the behavioral health clinician while in the ED. Diagnosis: 303.90 (F10.20) Alcohol Abuse, Severe 309.89 (F43.8) Unspecified Stressor Related Disorder; mother very sick in hospital Impression/Plan: Patient is psychiatrically cleared. He does not meet [place] IVC criteria. He denied SI/HI and had future oriented thinking (wanting to get home and decorate for [place]/get ready for [place]). There was no observed psychosis. He is no longer under the influence of alcohol. He has been medically admitted for alcohol detox since 07/28/2017. Recommendation for patient to follow up with Intensive Outpatient Substance Abuse Program (SAIOP) at [facility]. Patient provided with another outpatient resource list with [facility] highlighted. Documented that patient should follow up with them as soon as possible and he can walk in Sunday-Sunday [id number]. Also highlight both mobile crisis numbers on the outpatient resource sheet. Consulted with Dr. Cordero regarding the management and care of patient. Attending hospitalist made farrell of recommendations and identified she ordered Prozac to address depression.
[2017-07-31] MEDS: OLANZAPINE 5 MG TABLET PO SCH (21:49)
[2017-08-01] MEDS: FLUTICASONE/SALMETEROL DISKUS 250-50 MCG/DOSE IH SCH (05:53)
[2017-08-01] MEDS: LANSOPRAZOLE 15 MG TAB.RAP.DR PO SCH (05:53)
[2017-08-01 10:33] VITALS: BP 126/76
[2017-08-01] MEDS: LISINOPRIL 10 MG TABLET PO SCH (10:44)
[2017-08-01] MEDS: MULTIVITAMIN TABLET PO SCH (10:44)
[2017-08-01] MEDS: AMLODIPINE BESYLATE 10 MG TABLET PO SCH (10:45)
[2017-08-01] MEDS: FLUOXETINE HCL 20 MG CAPSULE PO SCH (10:45)
[2017-08-01] MEDS: MAGNESIUM OXIDE 400 MG TABLET PO SCH (10:45)
[2017-08-01] MEDS: HYDRALAZINE HCL 50 MG TABLET PO SCH (10:45)
[2017-08-01] MEDS: THIAMINE HCL 100 MG TABLET PO SCH (10:45)
[2017-08-01] MEDS: ASPIRIN 81 MG TABLET, ENT COATED PO SCH (10:45)
[2017-08-01] MEDS: METOPROLOL SUCCINATE 50 MG TAB.SR.24H PO SCH (10:46)
--- NOTE | 2017-08-02 06:26 | PDOC DISCHARGE SUMMARY ---
General - Admit/Disc Date/PCP Admission Date/Primary Care Provider: 07/28/17 04:12 CLAUDETTE HOOD MD Discharge Date: 08/01/17 - Discharge Diagnosis (1) Alcohol withdrawal delirium, acute, mixed level of activity Is this a current diagnosis for this admission?: Yes (2) COPD (chronic obstructive pulmonary disease) Is this a current diagnosis for this admission?: Yes (3) Hypertension Is this a current diagnosis for this admission?: Yes (4) Suicidal ideation Is this a current diagnosis for this admission?: Yes (5) Tobacco abuse Is this a current diagnosis for this admission?: Yes (6) Hypokalemia Is this a current diagnosis for this admission?: Yes (7) Hypomagnesemia Is this a current diagnosis for this admission?: Yes - Additional Information Resuscitation Status: Full Code Home Medications: Amlodipine Besylate [Norvasc 10 mg Tablet] 10 mg PO DAILY #30 tablet 08/01/17 Fluoxetine HCl [Prozac 20 mg Capsule] 20 mg PO DAILY #30 capsule 08/01/17 Fluticasone/Salmeterol [Advair 250-50 Diskus 14 Dose/Diskus] 1 inh IH Q12A #60 inhaler 08/01/17 Hydralazine HCl [Apresoline 50 mg Tablet] 100 mg PO Q12 #120 tablet 08/01/17 Lisinopril [Prinivil 10 mg Tablet] 20 mg PO Q12 #30 tablet 08/01/17 Lorazepam [Ativan 0.5 mg Tablet] 0.5 mg PO Q4 PRN #14 tab 08/01/17 Metoprolol Succinate [Toprol Xl 50 mg Tab.sr] 50 mg PO Q12 #30 tab.sr.24h Multivitamin [Tab-A-Derik (Multiple Vitamin) Tablet] 1 tab PO DAILY #100 tablet 08/01/17 Nicotine [Nicoderm 21 mg/24 Hr Transderm Patch] 1 each TD DAILYP PRN #30 patch.td24 08/01/17 Olanzapine [Zyprexa 5 mg Tablet] 10 mg PO QHS #60 tablet 08/01/17 Thiamine HCl [Thiamine 100 mg Tablet] 100 mg PO DAILY #100 tablet 08/01/17 History of Present Illness History of Present Illness: MARCOS MIRAMONTES is a 51 year old male with a PMH of HTN who presented to [facility] on 07/26/17 for SI. Patient was initially found to be intoxicated and was IVC. Patient was subsequently evaluated by psychology and felt to not be a danger to himself or others. Patient reported drinking a pint or more daily. Although pending discharge, patient became increasingly agitated and tachycardic as well as hypertensive. Patient was felt to be having acute alcohol withdrawal and was referred to the hospitalist service. Hospital Course Hospital Course: Patient was placed on benzodiazepines and Zyprexa. As he responded to treatment he was weaned off. All electrolyte abnormalities were trended and replaced at the time of discharge. Blood pressure management was challenging which require triple antihypertensive therapy. Patient has been encouraged as to follow-up for counseling. We also added Prozac to his regimen as he was not suicidal. It is my understanding that he already has set up an interview for a job which will help greatly on this patient. He has been strongly encouraged as to abstain from alcohol and to quit smoking. We provided a 30 day medication supply with 1 refill so patient will have plenty lot of time to be set up with a local provider. Since patient had achieved maximum benefit of hospitalization stay prompted to discharge under stable condition Physical Exam Vital Signs: Temp Pulse Resp BP Pulse Ox 98.1 F 71 16 111/74 99 08/01/17 04:34 08/01/17 04:34 08/01/17 04:34 08/01/17 04:34 08/01/17 04:34 Intake & Output 07/30/17 07/31/17 08/01/17 06:59 06:59 06:59 Intake Total 5362 4402 1224 Balance 5362 4402 1224 Weight 54.6 kg 54.6 kg General appearance: PRESENT: no acute distress, cooperative, thin Head exam: PRESENT: atraumatic, normocephalic Eye exam: PRESENT: conjunctiva pink, EOMI, PERRLA Mouth exam: PRESENT: moist, neck supple Neck exam: PRESENT: full ROM. ABSENT: JVD, tenderness Respiratory exam: PRESENT: clear to auscultation jah Cardiovascular exam: PRESENT: RRR. ABSENT: diastolic murmur, systolic murmur Vascular exam: PRESENT: normal capillary refill GI/Abdominal exam: PRESENT: normal bowel sounds, soft. ABSENT: tenderness Extremities exam: PRESENT: full ROM. ABSENT: joint swelling, pedal edema Musculoskeletal exam: PRESENT: ambulatory Neurological exam: PRESENT: alert, awake, oriented to person, oriented to place , oriented to time, CN II-XII grossly intact Psychiatric exam: PRESENT: appropriate affect, normal mood Results Laboratory Results: 07/29/17 04:24 07/30/17 07:05 Plan Discharge Plan: Discharge home. Patient was advised to follow-up with counseling as scheduled Time Spent: Less than 30 Minutes
== END 2017-08-01 11:00 | disposition home or self-care (01) | DRG 897 ==
LOC: ER 19:52 → EH 07-28 04:12 → 5 07-28 16:27
PROVIDERS: ADMIT Family Medicine; ATTEND Family Medicine
PROC: 3E0F73Z Introduction of Anti-inflammatory into Respiratory Tract, Via Natural or Artificial Opening (ICD-10-PCS; principal; 2017-07-28)
PROC: 3E0234Z Introduction of Serum, Toxoid and Vaccine into Muscle, Percutaneous Approach (ICD-10-PCS; 2017-08-01)
DX: F10.231 Alcohol dependence with withdrawal delirium (principal); R45.851 Suicidal ideations; F10.221 Alcohol dependence with intoxication delirium; Y90.8 Blood alcohol level of 240 mg/100 ml or more; J44.9 Chronic obstructive pulmonary disease, unspecified; I10 Essential (primary) hypertension; E87.6 Hypokalemia; E83.42 Hypomagnesemia; F43.8 Other reactions to severe stress; K70.10 Alcoholic hepatitis without ascites; Z79.899 Other long term (current) drug therapy; Z23 Encounter for immunization; Z87.891 Personal history of nicotine dependence; Z88.6 Allergy status to analgesic agent; Z83.6 Family history of other diseases of the respiratory system
CPT/HCPCS: 36415; 80048; 80053; 80307; 81001; 83735; 84443; 85025; 85610; 87040; 87086; 90686; 93005; 93010; 94640; 99285; J1650; J2060; J3411; J3475; J3480; J3490; J7030; J7620